=== PATIENT | male | born 1965 | race Caucasian/White ===

== ENCOUNTER 2017-02-11 12:04 | Emergency (ER) | payer BC ==
[2017-02-11 12:37] VITALS: BP 117/75
--- NOTE | 2017-02-11 12:48 | UC ---
Skin Complaint HPI - HPI Summary HPI Summary: Woke with red spot on R thigh this morning. Son is being treated for Lyme currently, also found tick on daughter last week. Worried about tick bite, but never found a tick. - History of Current Complaint Hx Obtained From: Patient Onset/Duration: Sudden Onset Timing: Constant Onset Severity: Mild Current Severity: Mild Location: Discrete Character: Redness Aggravating: Nothing Alleviating: Nothing Associated Signs & Symptoms: Positive: Negative <Hannah Hall - Last Filed: 02/11/17 12:44> <Ryanne Gipson - Last Filed: 02/11/17 13:39> - History of Current Complaint Chief Complaint: UCSkin Time Seen by Provider: 02/11/17 12:39 Stated Complaint: BUG BITE - Allergy/Home Medications Allergies/Adverse Reactions: Allergies Allergy/AdvReac Type Severity Reaction Status Date / Time Codeine Allergy Nausea And Verified 02/11/17 12:37 Vomiting Review of Systems Constitutional: Negative Skin: Other - red spot R thigh Eyes: Negative ENT: Negative Respiratory: Negative Cardiovascular: Negative Gastrointestinal: Negative Genitourinary: Negative Motor: Negative Neurovascular: Negative Musculoskeletal: Negative Neurological: Negative Psychological: Negative All Other Systems Reviewed And Are Negative: Yes <Hannah Hall - Last Filed: 02/11/17 12:44> PMH/Surg Hx/FS Hx/Imm Hx Previously Healthy: Yes - Surgical History Surgical History: None - Social History Lives: With Family Alcohol Use: Rare Substance Use Type: None Smoking Status (MU): Never Smoked Tobacco <Hannah Hall - Last Filed: 02/11/17 12:44> Physical Exam Triage Information Reviewed: Yes Appearance: Well-Appearing, No Pain Distress, Well-Nourished Vital Signs: Initial Vital Signs Temp 97.3 F 02/11/17 12:32 Pulse 53 02/11/17 12:32 Resp 16 02/11/17 12:32 BP 117/75 02/11/17 12:32 Pulse Ox 100 02/11/17 12:32 Vital Signs Reviewed: Yes Eye Exam: Normal Eyes: Positive: Conjunctiva Clear ENT Exam: Normal ENT: Positive: Normal ENT inspection, Hearing grossly normal, Pharynx normal, TMs normal Dental Exam: Normal Neck exam: Normal Neck: Positive: Supple, Nontender, No Lymphadenopathy Respiratory Exam: Normal Respiratory: Positive: Chest non-tender, Lungs clear, Normal breath sounds, No respiratory distress, No accessory muscle use Cardiovascular Exam: Normal Cardiovascular: Positive: RRR, No Murmur Musculoskeletal Exam: Normal Neurological Exam: Normal Neurological: Positive: Alert Psychological Exam: Normal Skin Exam: Other - 6mm red papule R thigh, no ecchymosis, extravasated blood, PW , streaking, drainage <Hannah Hall - Last Filed: 02/11/17 12:44> Vital Signs: Initial Vital Signs Temp 97.3 F 02/11/17 12:32 Pulse 53 02/11/17 12:32 Resp 16 02/11/17 12:32 BP 117/75 02/11/17 12:32 Pulse Ox 100 02/11/17 12:32 <Ryanne Gipson - Last Filed: 02/11/17 13:39> Course/Dx - Diagnoses Provider Diagnoses: suspect insect bite R thigh <Hannah Hall - Last Filed: 02/11/17 12:44> Discharge <Hannah Hall - Last Filed: 02/11/17 12:44> <Ryanne Gipson - Last Filed: 02/11/17 13:39> - Discharge Plan Condition: Stable Disposition: HOME Patient Education Materials: Insect Bite or Sting (ED) Referrals: Pancho Mann MD [Primary Care Provider] - Additional Instructions: As we discussed, the spot on your leg does not have the typical features that one sees with ticks that have been attached for ay length of time. However, with the recent exposures in your family you should be looking for the early signs of lyme (though I would worry much more about ticks you never found). If you develop any of the following, please see your physician promptly: (1) Fever, chills, or generalized malaise associated with a headache. (2) A red round area at the site of the bite (or elsewhere) (3) Joint pain, joint swelling or generalized weakness. (4) Redness, swelling, or drainage at the site of the bite. Check yourself, your children and your pets for ticks whenever you've been in an area where ticks live. To remove a tick, grasp it firmly with some tweezers or a string in a slipknot as close to its head as possible and pull it steadily. Ticks do not have a typical "head" attached to their body. There are mouth parts sticking out which they use to feed. If there are mouth parts left behind in the wound there is NO increased risk of Lyme infection; however, the chances of a bacterial skin infection (cellulitis) are higher. If mouth parts remain after tick removal, the best thing to do is apply warm soaks to the area 3-4 times per day to encourage the skin to expel the foreign material. WHEN A TICK IS NOT ENGORGED AND HAS BEEN ON LESS THAN 24 HOURS - THE RISK FOR LYME IS NEGLIGIBLE. YOU CAN REMOVE THE TICK AND OBSERVE THE AREA ON YOUR OWN. Attestation Statement User Type: Provider - I was available for consult. This patient was seen by the DEMOND. The patient was not presented to, seen by, or examined by me. -Dennis <Ryanne Gipson - Last Filed: 02/11/17 13:39>
== END 2017-02-11 12:45 | disposition home or self-care (01) ==
LOC: UCEAST 12:04
DX: L53.9 Erythematous condition, unspecified (principal)
CPT/HCPCS: 99211; G0463

== ENCOUNTER → 2017-07-26 16:56 | Emergency (ER) | payer OTHER ==
[~2017-07-26 16:56] MED LIST: Iohexol 300* (CONTRAST) 10 ML SDV IV ONE; Morphine INJ* 2 MG/ML 1 ML CARPUJECT IV ONE; Morphine INJ* 2 MG/ML 1 ML SYRINGE (TWO MG - NEW SYRINGE VERSION) ONE; Ondansetron INJ* 2 MG/ML VIAL IV ONE
--- NOTE | 2017-07-26 17:56 | ED ---
GI/ HPI - HPI Summary HPI Summary: 52M presents with abdominal pain for two days. He states it is located in his lower quadrants. He had one episode of vomiting. He had one episode of diarrhea yesterday that resolved. He has been taking ibuprofen which has been helping. He denies every having this pain before. no previous abdominal surgeries. He states his family has been sick but no one with a GI illness. He denies any history of diverticulitis. no fever. no cough. no dysuria, hematuria , frequency, or urgency. he denies any flank pain. ibuprofen and tyenlol makes it better but does not relieve pain. food makes it worst. has not eaten much in past couple days. - History of Current Complaint Chief Complaint: EDAbdPain Time Seen by Provider: 07/26/17 17:40 Stated Complaint: ABD PAIN Pain Intensity: 7 - Allergy/Home Medications Allergies/Adverse Reactions: Allergies Allergy/AdvReac Type Severity Reaction Status Date / Time Codeine Allergy Nausea And Verified 02/11/17 12:37 Vomiting PMH/Surg Hx/FS Hx/Imm Hx Endocrine/Hematology History: Denies: Hx Anticoagulant Therapy Cardiovascular History: Denies: Hx Hypertension Infectious Disease History: No Infectious Disease History: Denies: Traveled Outside the [place] in Last 30 Days - Family History Known Family History: Negative: Renal Disease - Social History Alcohol Use: Rare Substance Use Type: Reports: None Smoking Status (MU): Never Smoked Tobacco Review of Systems Negative: Fever Negative: Chest Pain Negative: Shortness Of Breath Positive: Abdominal Pain, Vomiting, Diarrhea, Nausea All Other Systems Reviewed And Are Negative: Yes Physical Exam Triage Information Reviewed: Yes Vital Signs On Initial Exam: Initial Vitals Temp Pulse Resp BP Pulse Ox 98.8 F 52 16 142/88 99 07/26/17 17:05 07/26/17 17:05 07/26/17 17:05 07/26/17 17:05 07/26/17 17:05 Vital Signs Reviewed: Yes Appearance: Positive: Well-Appearing Skin: Positive: Warm, Dry Head/Face: Positive: Normal Head/Face Inspection Eyes: Positive: Normal, EOMI, JIAN, Conjunctiva Clear ENT: Positive: Normal ENT inspection, Pharynx normal, TMs normal Respiratory/Lung Sounds: Positive: Clear to Auscultation, Breath Sounds Present Cardiovascular: Positive: Normal, RRR Abdomen Description: Positive: Soft, Other: - tenderness in bilateral lower quadrants Bowel Sounds: Positive: Present Musculoskeletal: Positive: Normal Neurological: Positive: Normal Psychiatric: Positive: Normal Diagnostics - Vital Signs Vital Signs Temp Pulse Resp BP Pulse Ox 07/26/17 17:05 98.8 F 52 16 142/88 99 - Laboratory Result Diagrams: 07/26/17 18:43 07/26/17 18:43 Lab Statement: Any lab studies that have been ordered have been reviewed, and results considered in the medical decision making process. - CT abd CT Interpretation: No Acute Changes CT Interpretation Completed By: Radiologist CELSO Course/Dx - Course Course Of Treatment: 52M presents with abdominal pain for two days. He states it is located in his lower quadrants. He had one episode of vomiting. He had one episode of diarrhea yesterday that resolved. He has been taking ibuprofen which has been helping. He denies every having this pain before. no previous abdominal surgeries. He states his family has been sick but no one with a GI illness. He denies any history of diverticulitis. no fever. no cough. no dysuria, hematuria, frequency, or urgency. he denies any flank pain. on exam has tenderness bilateral lower quadrant. labs wbc normal. na low so gave fluids. CT normal. patient feeling better. explained like viral etiology. patient understand and agrees with plan. - Diagnoses Differential Diagnoses - Male: Diverticulosis, Gastroenteritis (Bacterial), Gastroenteritis (Viral), Urinary Tract Infection Provider Diagnoses: Abdominal pain, Dehydration Discharge - Discharge Plan Condition: Good Disposition: HOME Patient Education Materials: Abdominal Pain (ED) Referrals: Pancho Mann MD [Primary Care Provider] - Additional Instructions: Drink small amounts of fluid as tolerated When able to eat follow BRAT diet: Bananas, rice, applesauce, toast Take ibuprofen or Tylenol for pain as needed every 6 hours Follow up with primary within 5 days Return to ED if develop any new or worsening symptoms
[2017-07-26] MEDS: NS 0.9% 1000 ML* 2,000 ML IV ONE (18:48)
[2017-07-26 19:02] LABS: Hematocrit 45 % (42-52); Hemoglobin 15.7 g/dl (14.0-18.0); Mean Corpuscular HGB Conc 35 g/dl (31-36); Mean Corpuscular Hemoglobin 32 pg (27-31); Mean Corpuscular Volume 90 fL (80-94); Mean Platelet Volume 8 um3 (7.4-10.4); Red Blood Count 4.96 10^6/ul (4.0-5.4); Red Cell Distribution Width 13 % (10.5-15); White Blood Count 4.9 10^3/ul (3.5-10.8)
[2017-07-26 19:16] LABS: Albumin 4.8 g/dL (3.2-5.2); BUN/Creatinine Ratio 16.2 (8-20); EGFR African American 101.7 (>60); EGFR Non-African American 79.1 (>60); Total Protein 7.8 g/dL (6.4-8.9)
[2017-07-26 20:23] LABS: Urine Bacteria Absent (Absent); Urine Bilirubin Negative (Negative); Urine Glucose Negative (Negative); Urine Nitrite Negative (Negative)
--- NOTE | 2017-07-26 20:36 | RAD ---
INDICATION: Abdominal pain for 48 hours. Vomiting and diarrhea-resolved COMPARISON: None TECHNIQUE: Axial source images were obtained from the hemidiaphragms to the symphysis pubis following administration of oral and intravenous contrast. 93 mL Omnipaque 300 was utilized. Coronal and sagittal reconstructed images were acquired. Lung bases: The lung bases are clear. Liver: The liver is normal in size. There are no masses. There is no ductal dilatation. Gallbladder: There are no calcified gallstones. There is no evidence of wall thickening or pericholecystic fluid. Spleen: The spleen is normal in size. There are no masses. There are splenic granulomas. Pancreas: There is no focal pancreatic mass or ductal dilatation. Adrenal glands: There is no evidence of adrenal mass. Kidneys: The kidneys are normal in size. There is a ptotic right kidney. There are prompt nephrograms and there is prompt excretion bilaterally. There are no renal parenchymal masses. There is no evidence of nephrolithiasis. Adenopathy: There is no evidence of adenopathy by size criteria. Fluid collections: There are no free or localized fluid collections. Vessels:There are no significant atherosclerotic changes involving the aorta. There is no focal aneurysm. The iliac vessels are normal in caliber. The IVC appears normal. GI tract: There are no acute CT bowel findings. There is no obstruction. The stomach and small bowel appear normal. The lower GI tract is normal. The cecum, ileocecal valve, and terminal ileum appear normal. Pelvic organs: The prostate and seminal vesicles appear normal Bladder: There are no bladder masses. Abdominal and pelvic soft tissues: The extraperitoneal abdominal and pelvic soft tissues appear normal.. Osseous structures: There are no acute osseous findings. Other: None IMPRESSION: NO ACUTE CT FINDINGS. NO MASS OR INFLAMMATORY CHANGES
[2017-07-26 21:20] VITALS: BP 118/74
== END | disposition home or self-care (01) ==
LOC: ED 16:56
DX: R10.30 Lower abdominal pain, unspecified (principal); E86.0 Dehydration; R11.2 Nausea with vomiting, unspecified; R19.7 Diarrhea, unspecified; Z88.5 Allergy status to narcotic agent
CPT/HCPCS: 36415; 74177; 80053; 81003; 81015; 83690; 85025; 86141; 96374; 96375; 99283; J2270; J2405; Q9967

== ENCOUNTER 2017-07-28 17:23 | Emergency (ER) | payer OTHER ==
[2017-07-28] MEDS ORDERED: NS 0.9% 1000 ML* 1,000 ML IV ONE (21:01)
[2017-07-28] MEDS ORDERED: Ondansetron INJ* 2 MG/ML VIAL IV ONE (21:01)
[2017-07-28 21:19] LABS: Hematocrit 43 % (42-52); Mean Corpuscular HGB Conc 35 g/dl (31-36); Mean Corpuscular Hemoglobin 31 pg (27-31); Mean Corpuscular Volume 89 fL (80-94); Mean Platelet Volume 8 um3 (7.4-10.4); Red Blood Count 4.81 10^6/ul (4.0-5.4); Red Cell Distribution Width 13 % (10.5-15); White Blood Count 5.6 10^3/ul (3.5-10.8)
--- NOTE | 2017-07-28 21:37 | RAD ---
INDICATION: Abdominal pain COMPARISON: CT July 26, 2017 TECHNIQUE: A single view of the abdomen is submitted. FINDINGS: Bones: There are no acute bony findings. Soft tissues: The soft tissues appear normal. The psoas margins are sharp. Bowel gas pattern: Normal. There is residual contrast material or CT scan. Calcifications: There are no abnormal calcifications. Other: None IMPRESSION: NO ACUTE FINDINGS.
[2017-07-28 21:51] LABS: Albumin 4.5 g/dL (3.2-5.2); Calcium 9.7 mg/dL (8.6-10.3); EGFR African American 116.5 (>60); EGFR Non-African American 90.6 (>60); Globulin 2.7 g/dL (2-4); Total Bilirubin 1.3 mg/dL (0.2-1.0); Total Protein 7.2 g/dL (6.4-8.9)
[2017-07-28 22:09] LABS: Urine Bilirubin Negative (Negative); Urine Glucose Negative (Negative); Urine Nitrite Negative (Negative)
[2017-07-28 22:35] VITALS: BP 133/72
--- NOTE | 2017-07-28 22:45 | ED ---
Roe Kaplan Tiffany, scribed for Neeraj Courtney on 07/28/17 at 2115 . Abdominal Pain/Male - HPI Summary HPI Summary: This patient is a 52 year old Male presenting to [facility] with a chief complaint of sharp RLQ abdominal pain since 2 days ago that worsened this afternoon. The patient rates the pain 6/10 in severity. Symptoms aggravated by nothing. Symptoms alleviated by nothing. Patient denies urinary and bowel problems. Patient also denies vomiting and diarrhea. The patient presented to ED two days ago, during which he received CT scan that was negative. - History of Current Complaint Chief Complaint: EDAbdPain Stated Complaint: ABD PAIN Time Seen by Provider: 07/28/17 20:53 Hx Obtained From: Patient Onset/Duration: Lasting Days - 2, Still Present, Worse Since - This afternoon Timing: Constant Severity Currently: Moderate Pain Intensity: 6 Pain Scale Used: 0-10 Numeric Location: Discrete At: RLQ Character: Sharp Aggravating Factor(s): Nothing Alleviating Factor(s): Nothing Associated Signs And Symptoms: Positive: Negative - vomiting, diarrhea, urinary problems, bowel problems. - Allergies/Home Medications Allergies/Adverse Reactions: Allergies Allergy/AdvReac Type Severity Reaction Status Date / Time Codeine AdvReac Nausea And Verified 07/28/17 17:37 Vomiting PMH/Surg Hx/FS Hx/Imm Hx Previously Healthy: No Endocrine/Hematology History: Denies: Hx Anticoagulant Therapy, Hx Diabetes Cardiovascular History: Denies: Hx Hypertension History: Denies: Hx Renal Disease - Immunization History Date of Tetanus Vaccine: UTD Date of Influenza Vaccine: NO Infectious Disease History: No Infectious Disease History: Denies: Traveled Outside the [place] in Last 30 Days - Family History Known Family History: Negative: Renal Disease - Social History Alcohol Use: Rare Alcohol Amount: 1-2 beers Hx Substance Use: No Substance Use Type: Reports: None Hx Tobacco Use: No Smoking Status (MU): Never Smoked Tobacco Review of Systems Negative: Fever Positive: Abdominal Pain. Negative: Vomiting, Diarrhea Genitourinary: Negative - urinary problems All Other Systems Reviewed And Are Negative: Yes Physical Exam - Summary Physical Exam Summary: Appearance: Well appearing, no pain distress Skin: warm, dry, reflects adequate perfusion Head/face: normal Eyes: EOMI, JIAN ENT: normal Neck: supple, non-tender Respiratory: CTA, breath sounds present Cardiovascular: RRR, pulses symmetrical Abdomen: mild tenderness in hypogastric area Bowel: present Musculoskeletal: normal, strength/ROM intact Neuro: normal, sensory motor intact, A&Ox3 Triage Information Reviewed: Yes Vital Signs On Initial Exam: Initial Vitals Temp Pulse Resp BP Pulse Ox 99.2 F 70 20 128/89 100 07/28/17 17:32 07/28/17 17:32 07/28/17 17:32 07/28/17 17:32 07/28/17 17:32 Vital Signs Reviewed: Yes - Richardson Coma Scale Coma Scale Total: 15 Diagnostics - Vital Signs Vital Signs Temp Pulse Resp BP Pulse Ox 07/28/17 19:20 99.3 F 63 16 118/78 99 07/28/17 17:32 99.2 F 70 20 128/89 100 - Laboratory Result Diagrams: 07/28/17 21:05 07/28/17 21:05 Lab Statement: Any lab studies that have been ordered have been reviewed, and results considered in the medical decision making process. - Radiology Abdomen Xray Radiology Interpretation Completed By: Radiologist - NO ACUTE FINDINGS. ED physician has reviewed this radiology report. Abdominal Pain Fem Course/Dx - Course Course Of Treatment: This patient is a 52 year old Male presenting to [facility] with a chief complaint of sharp RLQ abdominal pain since 2 days ago that worsened this afternoon. Abdomen XR reveals, per radiologist, NO ACUTE FINDINGS. ED physician has reviewed this radiology report. Bloodwork/UA obtained. The patient presented to ED two days ago, during which he received CT scan that was negative. In the ED course the patient was given Zofran. Patient will be discharged with prescription for Zofran and Protonix and follow up from urology. The patient is agreeable with this plan. - Diagnoses Provider Diagnoses: Gastroenteritis, Nonspecific abdominal pain Discharge - Discharge Plan Condition: Stable Disposition: HOME Prescriptions: Ondansetron ODT TAB* [Zofran 4 MG Odt TAB*] 4 mg PO Q8H PRN #15 tab.odt MDD 3 PRN Reason: Nausea Pantoprazole TAB (NF) [Protonix TAB (NF)] 40 mg PO DAILY #30 tab Patient Education Materials: Gastroenteritis (ED), Abdominal Pain (ED) Referrals: Pancho Mann MD [Primary Care Provider] - 3 Days Bari Echeverria MD [Medical Doctor] - As Soon As Possible Additional Instructions: Follow up with PCP in 3 days. You are being referred to Dr. Echeverria, urologist. Return to ED if current symptoms worsen, or new symptoms develop. The documentation as recorded by the Roe leslie Tiffany accurately reflects the service I personally performed and the decisions made by me, Neeraj Courtney.
== END 2017-07-28 22:43 | disposition home or self-care (01) ==
LOC: ED 17:23
DX: K52.9 Noninfective gastroenteritis and colitis, unspecified (principal); R10.31 Right lower quadrant pain; Z88.5 Allergy status to narcotic agent
CPT/HCPCS: 36415; 74000; 80053; 81003; 83690; 84484; 85025; 96374; 99283; J2405

== ENCOUNTER 2018-03-01 14:45 | Emergency (ER) | payer OTHER ==
[2018-03-01 15:12] VITALS: BP 99/64
[2018-03-01] MEDS ORDERED: Tetan/Diph/Pertus SYR(Tdap)* 0.5 ML SYR(BOOSTRIX) use SYR IM ONE (15:37)
--- NOTE | 2018-03-01 15:37 | UC ---
Laceration HPI - HPI Summary HPI Summary: slipped in [place] and cut R hand on sharp shells yesterday. had full hand movement after fall but today hand is red and swollen - History Of Current Complaint Chief Complaint: UCSkin Stated Complaint: FINGER LACERATION Time Seen by Provider: 03/01/18 15:30 Hx Obtained From: Patient Laceration Location: Hand Mechanism Of Injury: Sharp Trauma Onset/Duration: Sudden Onset Severity: Mild Pain Intensity: 4 Aggravating Factors: Movement - Allergies/Home Medications Allergies/Adverse Reactions: Allergies Allergy/AdvReac Type Severity Reaction Status Date / Time codeine Allergy GI Upset Verified 03/01/18 15:13 Home Medications: Home Medications Acetaminophen [Tylenol 8 Hour] 03/01/18 [History] Ibuprofen [Advil] 200 mg PO 03/01/18 [History] PMH/Surg Hx/FS Hx/Imm Hx Previously Healthy: Yes Other History Of: Negative For: Anticoagulant Therapy - Surgical History Surgical History: None - Family History Known Family History: Positive: None Negative: Hypertension, Renal Disease - Social History Occupation: Works From/At Home Lives: With Family Alcohol Use: Daily Alcohol Amount: 1-2 beers Substance Use Type: None Smoking Status (MU): Never Smoked Tobacco Review of Systems Constitutional: Negative Respiratory: Negative Cardiovascular: Negative Musculoskeletal: Negative Neurological: Negative Psychological: Negative All Other Systems Reviewed And Are Negative: Yes Physical Exam Triage Information Reviewed: Yes Appearance: Well-Appearing, No Pain Distress, Well-Nourished Vital Signs: Initial Vital Signs Temp 98.2 F 03/01/18 15:05 Pulse 68 03/01/18 15:05 Resp 16 03/01/18 15:05 BP 99/64 03/01/18 15:05 Pulse Ox 100 03/01/18 15:05 Vital Signs Reviewed: Yes Respiratory Exam: Normal Cardiovascular Exam: Normal Cardiovascular: Positive: Brisk Capillary Refill Musculoskeletal: Positive: Strength Intact, ROM Limited @ - R 4th finger d/t swelling Neurological Exam: Normal Psychological Exam: Normal Skin: Positive: Other - few small lacs R dorsal hand, 1cm flap laceration 4th finger without bleeding Laceration Course/Dx - Differential Dx - Laceration/Wound Differental Diagnoses: Abrasion, Cellulitis, Laceration Provider Diagnoses: hand laceration and cellulitis Discharge - Sign-Out/Discharge Documenting (check all that apply): Patient Departure - Discharge Plan Condition: Good Disposition: HOME Prescriptions: Cephalexin CAP* [Keflex 500 CAP*] 500 mg PO QID #40 cap Referrals: Pancho Mann MD [Primary Care Provider] - 2 Days (if no better) Additional Instructions: elevate hand and apply warm packs keep wound clean and dry tylenol or ibuprofen for pain as directed take antibiotic a s prescribed - Billing Disposition and Condition Condition: GOOD Disposition: Home
== END 2018-03-01 16:01 | disposition home or self-care (01) ==
LOC: UCEAST 14:45
DX: S61.411A Laceration without foreign body of right hand, initial encounter (principal); L03.818 Cellulitis of other sites; L03.113 Cellulitis of right upper limb; W01.198A Fall on same level from slipping, tripping and stumbling with subsequent striking against other object, initial encounter; Y93.9 Activity, unspecified; Y92.828 Other wilderness area as the place of occurrence of the external cause; Z88.5 Allergy status to narcotic agent
CPT/HCPCS: 90471; 90715; 99212; G0463

== ENCOUNTER 2021-09-22 18:30 | Inpatient (IN) ==
[2021-09-22 20:52] LABS: ABS Eosinophils 0.1 10^3/ul (0-0.6); ABS Lymphocytes 1.4 10^3/ul (1.0-4.8); ABS Monocytes 0.9 10^3/ul (0-0.8); ABS Neutrophils 5.9 10^3/ul (1.5-7.7); Eosinophil % 0.7 %; Hematocrit 39 % (42-52); Hemoglobin 13.4 g/dL (14.0-18.0); Mean Corpuscular HGB Conc 35 g/dL (31-36); Mean Corpuscular Hemoglobin 32 pg (27-31); Mean Corpuscular Volume 92 fL (80-94); Platelet Count 236 10^3/uL (150-450); Red Blood Count 4.19 10^6 /uL (4.18-5.48); Red Cell Distribution Width 13 % (10-15); White Blood Count 8.2 10^3/uL (3.5-10.8)
[2021-09-22 21:00] LABS: Urine Appearance Clear; Urine Bilirubin Negative (Negative); Urine Blood Negative (Negative); Urine Color Yellow; Urine Glucose Negative (Negative); Urine Ketones Negative (Negative); Urine Nitrite Negative (Negative); Urine Protein Negative (Negative); Urine Specific Gravity 1.018 (1.002-1.030); Urine Urobilinogen Negative (Negative)
[2021-09-22 21:02] LABS: Activated Partial Thrombo Time 29.1 seconds (26.0-38.0); INR 1.05 (0.86-1.15)
[2021-09-22 21:09] LABS: Albumin 4.5 g/dL (3.2-5.2); Albumin/Globulin Ratio 1.8 (1-3); Calcium 9.6 mg/dL (8.6-10.3); Globulin 2.5 g/dL (2-4); Potassium 3.9 mmol/L (3.5-5.0); Total Bilirubin 0.7 mg/dL (0.2-1.0); eGFR CKD-EPI 101.4 (>60)
[2021-09-22 21:11] LABS: Troponin I 0.01 ng/mL (<0.03)
[2021-09-22] MEDS ORDERED: Acetaminophen IV 1 GM/100ML 100 ML IV SCH (22:15)
[2021-09-23] MEDS ORDERED: Morphine 2 MG/ML SYRINGE IV PRN (00:05)
[2021-09-23] MEDS: Heparin 5000 UNITS/ML 1 mL VIAL SUBCUT SCH ×3 (02:30→21:58)
[2021-09-23] MEDS: Acetaminophen IV 1 GM/100ML 100 ML IV SCH ×3 (03:22→19:36)
[2021-09-23] MEDS: Lactated Ringers 1000 ml BAG 1,000 ML IV SCH ×3 (04:02→19:36)
[2021-09-23] MEDS ORDERED: Famotidine IV 10 MG/ML 2 ml VIAL (20 mg) IV ONE (10:35)
[2021-09-23] MEDS ORDERED: Buffered Lidocaine 1% SYRIN 1 ml INTRADERM ONE (10:35)
[2021-09-23] MEDS ORDERED: Lactated Ringers 1000 ml BAG 1,000 ML IV SCH (11:00)
[2021-09-23] MEDS ORDERED: Famotidine IV 10 MG/ML 2 ml VIAL (20 mg) ONE (13:38)
[2021-09-23] MEDS ORDERED: fentaNYL 100 mcg/2 ml 50 MCG/ML VIAL ONE ×3 (13:44→17:57)
[2021-09-23] MEDS ORDERED: Midazolam 2 mg/2 ml VIAL 1 mg/ml 2 ml VIAL (2 mg) ONE ×2 (13:44)
[2021-09-23] MEDS ORDERED: ceFAZolin 1 GM ADVAN 1 GM ADDV.VIAL IVPB ONE (13:50)
[2021-09-23] MEDS ORDERED: ROPIVACAINE 5 MG/ML 30 ML BTL (0.5%) ONE ×2 (14:04→14:51)
[2021-09-23] MEDS ORDERED: Lidocaine 2% PF 5 ML VIAL ONE (15:14)
[2021-09-23] MEDS ORDERED: Propofol 10 MG/ML 20 ML BTL ONE (15:16)
[2021-09-23] MEDS ORDERED: Ondansetron 4 mg VIAL 2 MG/ML 2 ml VIAL ONE (15:16)
[2021-09-23] MEDS ORDERED: Dexamethasone IV 4 MG/ML VIAL 1 ml VIAL ONE (15:16)
[2021-09-23] MEDS ORDERED: EPHEDrine (Pressors) 50 MG/ML VIAL ONE (15:43)
[2021-09-23] MEDS ORDERED: Naloxone 0.4 mg VIAL 0.4 mg/ml 1 ml VIAL IV PRN (16:19)
[2021-09-23] MEDS ORDERED: Ondansetron 4 mg VIAL 2 MG/ML 2 ml VIAL IV PRN (16:19)
[2021-09-23] MEDS ORDERED: DiMENhydriNATE IV 50 mg/ml 1 ml VIAL IV PUSH PRN (16:19)
[2021-09-23] MEDS: fentaNYL 100 mcg/2 ml 50 MCG/ML VIAL IV PRN ×4 (17:58→18:49)
[2021-09-23] MEDS: ceFAZolin 1 GM ADVAN 1 GM in NS 0.9% 50 ML 50 ML IVPB SCH (23:46)
[2021-09-24] MEDS: Acetaminophen IV 1 GM/100ML 100 ML IV SCH ×3 (03:44→18:31)
[2021-09-24] MEDS: Lactated Ringers 1000 ml BAG 1,000 ML IV SCH (05:02)
[2021-09-24 07:57] LABS: Hematocrit 33 % (42-52); Hemoglobin 11.4 g/dL (14.0-18.0)
[2021-09-24] MEDS: ceFAZolin 1 GM ADVAN 1 GM in NS 0.9% 50 ML 50 ML IVPB SCH ×2 (08:01→15:58)
[2021-09-24] MEDS ORDERED: Senna TAB 8.6 mg TAB PO PRN (08:08)
[2021-09-24] MEDS ORDERED: Magnesium Hydroxide LIQ 30 ML UDC PO PRN (08:08)
[2021-09-24] MEDS ORDERED: Flu vaccine *QUAD* 2021-22* 0.5 ML SYRINGE IM ONE (09:00)
[2021-09-24 09:13] LABS: Calcium 8.4 mg/dL (8.6-10.3); Potassium 4.1 mmol/L (3.5-5.0)
[2021-09-24 09:19] LABS: eGFR CKD-EPI 101.4 (>60)
[2021-09-25] MEDS: Acetaminophen IV 1 GM/100ML 100 ML IV SCH (02:41)
[2021-09-25 07:39] VITALS: BP 108/68
== END 2021-09-25 12:20 | disposition home or self-care (01) | DRG 308 ==
LOC: ED 18:30 → SUATTDRO 23:59 → SSU 23:59
PROVIDERS: ADMIT Internal Medicine; ATTEND Hospitalist